=== PATIENT | female | born 1965 | race Caucasian/White ===

== ENCOUNTER 2017-12-13 13:39 | Emergency (ER) | payer OTHER ==
[~2017-12-13] VITALS: Ht 170.2 cm; Wt 85.3 kg
[2017-12-13 13:41] VITALS: BP 205/118; PULSE 114; RESP 16; TEMP 98.1; O2SAT 95
[2017-12-13] MEDS ORDERED: ACETAMINOPHEN 325 MG TAB PO ONE (14:45)
[2017-12-13] MEDS ORDERED: TETANUS/DIPHTHERIA TOXOID ADULT 0.5 ML VIAL IM ONE (14:45)
--- NOTE | 2017-12-13 14:48 | PD ---
HPI Chief Complaint: Fall Time Seen by Provider: 14:31 Travel History International Travel<30 days: No Contact w/Intl Traveler<30days: [place] Traveled to: [place] Traveled to known affect area: No History of Present Illness HPI 52-year-old female presents to the ED for evaluation of facial pain after fall onto concrete sidewalk around 9 AM today. The patient states that she tripped over the uneven concrete and fell directly onto her face and left knee. She denies loss of consciousness. She has been ambulatory since the accident. On presentation she complains of mild anterior headache. She denies dizziness, vision changes, nausea, vomiting, malocclusion, difficulties breathing through the nose. She treated at home by washing the wounds with cold water and applying ice. She is unsure of the date of her last tetanus immunization. PFSH Past Medical History Hx Anticoagulant Therapy: No Hypertension: Yes (no meds) Tetanus Vaccination: > 5 Years Influenza Vaccination: No ?: Not Past Surgical History Surgical History: No Previous Surgery Social History Alcohol Use: Yes (daily) Tobacco Use: No Substance Use: No Allergies-Medications (Allergen,Severity, Reaction): Coded Allergies: No Known Allergies (Unverified , 12/13/17) Reported Meds & Prescriptions Reported Meds & Active Scripts Active Vistaril (Hydroxyzine Pamoate) 50 Mg Cap 50 Mg PO TID Review of Systems Except as stated in HPI: all other systems reviewed are Neg Physical Exam Narrative GENERAL: Well-nourished, well-developed white female in no acute distress. Upon the stretcher. SKIN: Warm and dry. She has abrasions over the bridge of the nose and the anterior aspect of the left knee. Thorough evaluation reveals no other ecchymosis, abrasion, or laceration of the skin. HEAD: Normocephalic. No willard sign. No tenderness to palpation of the skull. No bony step-offs. No malocclusion of the teeth. Tender edema of the nasal bones and periorbital bones. EYES: No scleral icterus. No injection or drainage. PERRLA. EOMI. ENT: Pearly osorio tympanic membrane is bilaterally. Nasal mucosa is moist. Oropharynx without erythema, edema or exudate. NECK: Supple, trachea midline. No JVD or lymphadenopathy. No midline tenderness to palpation. Patient retains full, active, painless range of motion of the neck. CARDIOVASCULAR: Regular rate and rhythm without murmurs, gallops, or rubs. RESPIRATORY: Breath sounds clear and equal bilaterally. No accessory muscle use. GASTROINTESTINAL: Abdomen soft, non-tender, nondistended. + Bowel sounds MUSCULOSKELETAL: No cyanosis, or edema. No tenderness to palpation or limitations to range of motion of the joints of the upper and lower extremities bilaterally. NEUROLOGICAL: Awake and alert. Cranial nerves II through XII intact. Motor and sensory grossly within normal limits. 5/5 muscle strength in all muscle groups. Normal speech. BACK: Nontender without obvious deformity. No CVA tenderness. No midline tenderness. Data Data Last Documented VS Vital Signs Date Time Temp Pulse Resp B/P (MAP) Pulse Ox O2 Delivery O2 Flow Rate FiO2 12/13/17 15:58 8 12/13/17 13:41 98.1 114 205/118 (147) [address] Brain W/O Iv Contrast(Rout) (12/13/17 14:43) Ct Facial Bones W/O Iv Cont (12/13/17 14:43) Ice/Cold Pack (12/13/17 14:43) Tetanus/Diphtheria Tox Adult (Tetanus/Di (12/13/17 14:45) Acetaminophen (Tylenol) (12/13/17 14:45) Hydroxyzine Pamoate (Vistaril) (12/13/17 16:00) Ed Discharge Order (12/13/17 15:55) MDM Medical Decision Making Medical Screen Exam Complete: Yes Emergency Medical Condition: Yes Differential Diagnosis Closed head injury versus posttraumatic headache versus cephalgia versus nasal fracture versus orbital fracture versus need for tetanus immunization versus other Narrative Course 52-year-old female presents to the ED for evaluation of facial pain after fall onto concrete sidewalk around 9 AM today. The patient states that she tripped over the uneven concrete and fell directly onto her face and left knee. She denies loss of consciousness. She has been ambulatory since the accident. On presentation she complains of mild anterior headache. She is unsure of the date of her last tetanus immunization. Vitals reviewed. On physical exam the patient has abrasions over the anterior forehead and nose as well as the left knee. Chest significant swelling and beginning of ecchymosis underneath bilateral eyes. No focal neuro deficits. No limitations to range of motion of the knee. Tetanus immunization was updated. Patient was administered Tylenol by mouth. CT of the brain and facial bones revealed no acute fracture. However she does have a lot of blood in the bilateral sinuses and given her presentation I suspect there is an occult nasal fracture. I discussed the results the CT in detail with the patient and her friend at bedside. She expressed she is an anxious person and that this injury is increasing her anxiety. I prescribed a short course of Vistaril and gave her a dose here in the emergency room. We discussed reasons to return to the ED, sequela of closed head injury. She indicated understanding of instructions and is agreeable a care plan. The patient is stable and discharged home. Diagnosis Primary Impression: Closed head injury Qualified Codes: S09.90XA - Unspecified injury of head, initial encounter Additional Impression: Facial contusion Qualified Codes: S00.83XA - Contusion of other part of head, initial encounter Referrals: Damir Cheng DMD Patient Instructions: Chronic Post Traumatic Headache (ED), General Instructions, Nasal Fracture (ED) Additional Instructions: Rest, hydrate. Apply ice 10-15 minutes per session 4-5 times per day. Take OTC medications such as ibuprofen, Naprosyn or acetaminophen as needed for pain. Take Vistaril as prescribed, as needed for anxiety. Do not drive while taking this medication. No forceful nose blowing for the next 2 weeks. Arnica gel applied to areas of bruising may help to improve symptoms. Consider taking an OTC decongestant such as Sudafed to help dry nasal secretions. Follow-up with the maxillofacial surgeon as discussed. Keep ear wounds clean and dry. Allow the wounds to air dry after showering and apply a thin layer of antibiotic ointment once a day. Monitor wounds for signs of infection, return to the ED should they occur. Return to the ED for worsening symptoms or any urgent or emergent medical condition. Med/Other Pt SpecificInfo: Prescription(s) given Scripts Hydroxyzine Pamoate (Vistaril) 50 Mg Cap 50 MG PO TID for Anxiety, #12 CAP 0 Refills Prov: Jake Gonzalez MD 12/13/17 Disposition: 01 DISCHARGE HOME Condition: Stable Devi Godwin Dec 13, 2017 14:48
--- NOTE | 2017-12-13 15:05 | RADRPT ---
EXAM DATE/TIME: 12/13/2017 14:52 [facility] COMPARISON: No previous studies available for comparison. INDICATIONS : Trauma, trip and fall. RADIATION DOSE: 67.06 CTDIvol (mGy) MEDICAL HISTORY : Hypertension. SURGICAL HISTORY : None. ENCOUNTER: Initial ACUITY: 1 day PAIN SCALE: 5/10 LOCATION: middle facial TECHNIQUE: Multiple contiguous axial images were obtained of the head. Using automated exposure control and adj ustment of the mA and/or kV according to patient size, radiation dose was kept as low as reasonably a chievable to obtain optimal diagnostic quality images. DICOM format image data is available electro nically for review and comparison. FINDINGS: CEREBRUM: The ventricles are normal for age. No evidence of midline shift, mass lesion, hemorrhage or acute in farction. No extra-axial fluid collections are seen. POSTERIOR FOSSA: The cerebellum and brainstem are intact. The 4th ventricle is midline. The cerebellopontine angle i s unremarkable. EXTRACRANIAL: The visualized portion of the orbits is intact. SKULL: The calvaria is intact. No evidence of skull fracture. CONCLUSION: No acute intracranial disease. Oseas Ackerman MD on December 13, 2017 at 15:02 Board Certified Radiologist. This report was verified electronically.
--- NOTE | 2017-12-13 15:06 | RADRPT ---
EXAM DATE/TIME: 12/13/2017 14:52 [facility] COMPARISON: No previous studies available for comparison. INDICATIONS : Trauma, trip and fall. RADIATION DOSE: 34.86 CTDIvol (mGy) MEDICAL HISTORY : Hypertension. SURGICAL HISTORY : None. ENCOUNTER: Initial ACUITY: 1 day PAIN SCORE: 5/10 LOCATION: middle facial TECHNIQUE: Volumetric scanning of the facial bones was performed. Using automated exposure control and adjustme nt of the mA and/or kV according to patient size, radiation dose was kept as low as reasonably achiev able to obtain optimal diagnostic quality images. DICOM format image data is available electronicall y for review and comparison. FINDINGS: ORBITS: The orbital and infraorbital osseous structures are intact. The retroconal structures have a normal configuration. No radiopaque foreign bodies are seen. NASAL BONE: The nasal bone and maxillary spine are intact ZYGOMATIC ARCHES: Symmetric without evidence of fracture. SINUSES: Fluid in the maxillary, ethmoid and left frontal sinus.. NASAL CAVITY: The nasal septum is intact and midline. The lacrimal ducts are intact. SOFT TISSUES: No radiopaque foreign bodies seen. No soft-tissue swelling is seen. INTRACRANIAL: No intracranial air seen. CRIBIFORM PLATE: Grossly intact. CONCLUSION: 1. No facial fracture. 2. Pansinusitis. Oseas Ackerman MD on December 13, 2017 at 15:03 Board Certified Radiologist. This report was verified electronically.
[2017-12-13] MEDS ORDERED: VIST50CA PO (15:50)
[2017-12-13 15:58] VITALS: RESP 8
== END 2017-12-13 16:16 | disposition home or self-care (01) ==
LOC: PHEFT 13:39
DX: S09.90XA Unspecified injury of head, initial encounter (principal); S00.83XA Contusion of other part of head, initial encounter; Z23 Encounter for immunization; I10 Essential (primary) hypertension; W18.30XA Fall on same level, unspecified, initial encounter; Y93.9 Activity, unspecified; Y92.480 Sidewalk as the place of occurrence of the external cause
CPT/HCPCS: 70450; 70486; 90471; 90714; 96372